=== PATIENT | female | born 1965 | race Caucasian/White ===

== ENCOUNTER → 2016-09-24 | Outpatient (CLI) | payer MEDICAID ==
[~2016-09-24] MED LIST: Albuterol 0.083% 2.5 MG/3 ML Neb Soln NEB ONE
--- NOTE | 2016-09-24 14:33 | CR ---
EXAMINATION: PA chest radiograph. HISTORY: Dyspnea. FINDINGS: The trachea is midline. The cardiomediastinal silhouette is within normal limits. No pulmonary infil trates, effusions or pneumothorax. Osseous structures appear unremarkable. IMPRESSION: No acute cardiopulmonary process.
== END ==
LOC: MW.RT 12:49
PROVIDERS: ATTEND Internal Medicine Gastroenterology
DX: R06.00 Dyspnea, unspecified (principal)
CPT/HCPCS: 71020; 71020-26; 94060; 94727; 94729

== ENCOUNTER 2017-03-22 06:24 | Observation (INO) | payer MEDICAID ==
[2017-03-21 11:51] LABS: CHLORIDE,CL 106 mmol/L (98-110); SODIUM,NA 140 mmol/L (136-146)
[~2017-03-22 06:24] MED LIST changes: -Albuterol 0.083% 2.5 MG/3 ML Neb Soln NEB ONE; +Clindamycin Phosphate in D5W 900 MG in Premix Bag 1 BAG IV ONE; +Gentamicin 400 MG in Sodium Chloride 0.9% 50 ML IV ONE
[2017-03-22] MEDS: Lactated Ringers 1,000 ML IV SCH ×3 (07:07→23:45)
[2017-03-22] MEDS ORDERED: Propofol 200 MG/20 ML SDV ONE (07:09)
[2017-03-22] MEDS ORDERED: Rocuronium 10 MG/ML 10 ML Syringe ONE (07:09)
[2017-03-22] MEDS ORDERED: Lidocaine 2% 5 ML SDV ONE (07:09)
[2017-03-22] MEDS ORDERED: fentaNYL 100 MCG/2 ML SDV ONE ×2 (07:09→08:14)
[2017-03-22] MEDS ORDERED: Ondansetron 4 MG/2 ML SDV ONE (07:09)
[2017-03-22] MEDS ORDERED: Succinylcholine/Normal Saline 200 MG/10 ML Syringe ONE (07:09)
[2017-03-22] MEDS ORDERED: Midazolam 1 MG/ML 2 ML SDV ONE (07:10)
[2017-03-22] MEDS ORDERED: Gentamicin 400 MG in Sodium Chloride 0.9% 100 ML IV ONE (07:30)
--- NOTE | 2017-03-22 07:31 | PCM.PREANE ---
Preanesthetic Assessment - Anesthesia/Transfusion/Family Hx Anesthesia History: Prior Anesthesia Without Reaction Family History of Anesthesia Reaction: No Transfusion History: No Prior Transfusion(s) Intubation History: Unknown - Review of Systems General: No Symptoms Pulmonary: No Symptoms Cardiovascular: No Symptoms Gastrointestinal: No Symptoms Neurological: No Symptoms Other: Reports: None - Physical Assessment NPO Status Date: 03/21/17 NPO Status Time: 20:00 O2 Sat by Pulse Oximetry: 96 Respiratory Rate: 16 Vital Signs: Last Vital Signs Temp 37.0 C 03/22/17 06:30 Pulse 79 03/22/17 06:30 Resp 16 03/22/17 06:30 BP 139/74 03/22/17 06:30 Pulse Ox 96 03/22/17 06:30 Height: 1.61 m Weight: 114.759 kg ASA Class: 2 Mental Status: Alert & Oriented x3 Airway Class: Mallampati = 2 Dentition: Reports: Normal Dentition Thyro-Mental Finger Breadths: 2 Mouth Opening Finger Breadths: 3 ROM/Head Extension: Full Lungs: Clear to Auscultation, Normal Respiratory Effort Cardiovascular: Regular Rate, Regular Rhythm - Lab Values: Laboratory Last Values WBC 7.12 K/uL (4.0-11.0) 03/21/17 11:11 RBC 4.43 M/uL (4.30-5.90) 03/21/17 11:11 Hgb 14.0 g/dL (12.0-16.0) 03/21/17 11:11 Hct 42.6 % (36.0-46.0) 03/21/17 11:11 MCV 96.2 fL (80.0-98.0) 03/21/17 11:11 MCH 31.6 pg (27.0-32.0) 03/21/17 11:11 MCHC 32.9 g/dL (31.0-37.0) 03/21/17 11:11 RDW Std Deviation 46.1 fl (28.0-62.0) 03/21/17 11:11 RDW Coeff of Gwyn 13 % (11.0-15.0) 03/21/17 11:11 Plt Count 255 K/uL (150-400) 03/21/17 11:11 MPV 10.80 fL (7.40-12.00) 03/21/17 11:11 Nucleated RBC % 0.0 /100WBC 03/21/17 11:11 Nucleated RBCs # 0 K/uL 03/21/17 11:11 Sodium 140 mmol/L (136-146) 03/21/17 11:11 Potassium 4.1 mmol/L (3.5-5.1) 03/21/17 11:11 Chloride 106 mmol/L (98-110) 03/21/17 11:11 Carbon Dioxide 24 mmol/L (21-31) 03/21/17 11:11 BUN 10 mg/dL (6.0-23.0) 03/21/17 11:11 Creatinine 0.7 mg/dL (0.6-1.5) 03/21/17 11:11 Est Cr Clr Drug Dosing 79.48 mL/min 03/21/17 11:11 Estimated GFR (MDRD) > 60.0 ml/min 03/21/17 11:11 Glucose 140 mg/dL (60-110) H 03/21/17 11:11 Calcium 9.2 mg/dL (8.8-10.8) 03/21/17 11:11 HCG, Qual NEGATIVE (NEG) 03/21/17 11:11 Blood Type A POSITIVE 03/21/17 11:11 Antibody Screen NEGATIVE 03/21/17 11:11 - Allergies Allergies/Adverse Reactions: Allergies Allergy/AdvReac Type Severity Reaction Status Date / Time codeine Allergy Vomiting Verified 06/27/16 14:05 - Blood Blood Available: No - Anesthesia Plan Pre-Op Medication Ordered: None - Acknowledgements Anesthesia Type Planned: General Anesthesia Pt an Appropriate Candidate for the Planned Anesthesia: Yes Alternatives and Risks of Anesthesia Discussed w Pt/Guardian: Yes Pt/Guardian Understands and Agrees with Anesthesia Plan: Yes PreAnesthesia Questionnaire HEENT History: Reports: Allergic Rhinitis, Impaired Vision, Other (See Below) Other HEENT History: wears glasses Cardiovascular History: Reports: Hypertension, Other (See Below) Other Cardiovascular History: "high BP if I take to much sudafed" Respiratory History: Reports: Asthma, Sleep Apnea Other Respiratory History: uses CPAP Gastrointestinal History: Reports: GERD Genitourinary History: Reports: None CARBIDE TOOL [employer]KER History: Reports: , Spontaneous Other OB/BYN History: ETOP x3, spontaneous AB x3, 1 vaginal delivery Musculoskeletal History: Reports: None Neurological History: Reports: Vertigo Psychiatric History: Reports: Anxiety Endocrine/Metabolic History: Reports: Obesity/BMI 30+ (BMI 44.1) Hematologic History: Reports: None Immunologic History: Reports: None Oncologic (Cancer) History: Reports: None Dermatologic History: Reports: None - Infectious Disease History Infectious Disease History: Reports: Chicken Pox - Past Surgical History Head Surgeries/Procedures: Reports: None HEENT Surgical History: Reports: Naso-Sinus Surgery, Polypectomy, Tonsillectomy , Other (See Below) Other HEENT Surgeries/Procedures: Septal surgery Respiratory Surgical History: Reports: None Female Surgical History: Reports: D&C, Other (See Below) Other Female Surgeries/Procedures: laparotomy with right ovarian cystectomy in early s, ETOP x3 Neurological Surgical History: Reports: None - SUBSTANCE USE Smoking Status *Q: Never Smoker Second Hand Smoke Exposure: No Days Per Week of Alcohol Use: 0 Recreational Drug Use History: No - HOME MEDS Home Medications: Home Meds Albuterol [Proair HFA] 2 puff INH Q4HR PRN 03/01/14 [History] Pseudoephedrine [Sudafed 12 Hour] 120 mg PO ASDIRECTED PRN 03/01/14 [History] Fluticasone/Salmeterol [Advair Diskus 100-50] 2 puff INH BID 06/24/16 [History] Ibuprofen [Advil] 1 tab PO ASDIRECTED PRN 03/17/17 [History] Loratadine/Pseudoephedrine [Claritin-D 24 Hour Tablet] 1 tab PO ASDIRECTED PRN 03/17/17 [History] Multivitamin [Multivitamins] 1 tab PO DAILY 03/17/17 [History] Omeprazole 20 mg PO ASDIRECTED PRN 03/17/17 [History] Thiamine [Vitamin B-1] 1 tab PO DAILY 03/17/17 [History] Vitamin B Complex 1 tab PO DAILY 03/17/17 [History] - CURRENT (IN HOUSE) MEDS Current Meds: Current Medications Lactated Ringer's (Ringers, Lactated) 1,000 mls @ 125 mls/hr IV ASDIRECTED APPLE Last Admin: 03/22/17 07:07 Dose: 125 mls/hr Gentamicin Sulfate 400 mg/ (Sodium Chloride) 110 mls @ 220 mls/hr IV ONETIME ONE Stop: 10/17/17 07:59 Discontinued Medications Fentanyl (Sublimaze) Confirm Administered Dose 200 mcg .ROUTE .STK-MED ONE Stop: 03/22/17 07:10 Clindamycin Phosphate 900 mg/ (Premix) 50 mls @ 100 mls/hr IV ONETIME ONE Stop: 03/22/17 06:50 Gentamicin Sulfate 400 mg/ (Sodium Chloride) 60 mls @ 100 mls/hr IV ONETIME ONE Stop: 03/22/17 06:52 Lidocaine (Xylocaine-Mpf 2%) Confirm Administered Dose 5 ml .ROUTE .STK-MED ONE Stop: 03/22/17 07:10 Midazolam HCl (Versed 1 Mg/Ml) Confirm Administered Dose 2 mg .ROUTE .STK-MED ONE Stop: 03/22/17 07:11 Ondansetron HCl (Zofran) Confirm Administered Dose 4 mg .ROUTE .STK-MED ONE Stop: 03/22/17 07:10 Propofol (Diprivan 20 Ml) Confirm Administered Dose 200 mg .ROUTE .STK-MED ONE Stop: 03/22/17 07:10 Rocuronium [place] (Zemuron) Confirm Administered Dose 100 mg .ROUTE .STK-MED ONE Stop: 03/22/17 07:10 Succinylcholine Chloride (Succinylcholine In Ns Pf) Confirm Administered Dose 200 mg .ROUTE .STK-MED ONE Stop: 03/22/17 07:10
[2017-03-22] MEDS ORDERED: Fluorescein 5 ML Vial ONE (07:34)
[2017-03-22] MEDS ORDERED: Furosemide 40 MG/4 ML VIAL ONE (08:24)
[2017-03-22] MEDS ORDERED: Neostigmine Methylsulfate 1 MG/ML 5 ML Syringe ONE (08:33)
[2017-03-22] MEDS ORDERED: fentaNYL 100 MCG/2 ML SDV IVPUSH PRN (08:45)
[2017-03-22] MEDS ORDERED: HYDROmorphone 2 MG/ML Syringe ONE (09:31)
[2017-03-22] MEDS ORDERED: Dexamethasone 4 MG/ML 5 ML MDV ONE (09:32)
[2017-03-22] MEDS ORDERED: ePHEDrine 50 MG/ML SDV ONE (09:34)
[2017-03-22] MEDS ORDERED: Phenylephrine/Normal Saline 100 MCG/ML 10 ML Syringe ONE (09:37)
[2017-03-22] MEDS ORDERED: Albuterol 6.7 GM Inhaler INH ONE (09:40)
[2017-03-22] MEDS ORDERED: Albuterol/Ipratropium 3.0-0.5 MG/3 ML Neb Soln ONE (10:38)
[2017-03-22] MEDS ORDERED: Albuterol/Ipratropium 3.0-0.5 MG/3 ML Neb Soln NEB ONE (10:44)
[2017-03-22] MEDS ORDERED: Acetaminophen 1,000 MG in Premix Bag 1 BAG IV ONE (11:24)
[2017-03-22] MEDS ORDERED: Belladonna Alkaloids/Opium 16.2-30 MG Supp RECTAL ONE (11:30)
[2017-03-22] MEDS ORDERED: Belladonna Alkaloids/Opium 16.2-30 MG Supp ONE (11:34)
[2017-03-22] MEDS ORDERED: Promethazine 25 MG/ML SDV IM PRN (12:33)
[2017-03-22] MEDS ORDERED: Ondansetron 4 MG/2 ML SDV IVPUSH PRN (12:33)
[2017-03-22] MEDS ORDERED: PSEUDOEPHEDRINE 120 MG PO PRN (12:37)
[2017-03-22] MEDS ORDERED: Loratadine/Pseudoephedrine 5-120 MG Tab.ER PO PRN (12:37)
[2017-03-22] MEDS ORDERED: Non-Formulary Medication 1 Each (Omeprazole [Omeprazole] 20 MG) PO PRN (12:37)
[2017-03-22] MEDS ORDERED: Omeprazole 20 MG Cap.CR PO PRN (12:49)
[2017-03-22] MEDS: Albuterol/Ipratropium 3.0-0.5 MG/3 ML Neb Soln NEB SCH ×4 (13:20→22:09)
--- NOTE | 2017-03-22 13:59 | PCM.OPNOTE ---
<David Sal - Last Filed: 03/22/17 14:26> - General Post-Op/Procedure Note Date of Surgery/Procedure: 03/22/17 Operative Procedure(s): Total vaginal hysterectomy. Anterior and posterior colporrhaphy Findings: Cystocele and prominent rectocele/enterocele Well vascularized vaginal tissue Pre Op Diagnosis: Postmenopausal bleeding and pelvic flood prolapse Post-Op Diagnosis: Postmenopausal bleeding and pelvic flood prolapse Anesthesia Technique: General LMA Primary Surgeon: Brittni Villasenor Dairy Processing Supervisor: Davdi Sal Pathology: Uterus and cervix Fluid Replacement, Intraop: 2,400 EBL in mLs: 300 Complications: None known Condition: Good Free Text/Narrative:: Intake & Output 03/21/17 03/22/17 03/22/17 22:59 06:59 14:59 Intake Total 3000 Output Total 1202 Balance 1798 <Brittni Villasenor - Last Filed: 03/22/17 14:49> - General Post-Op/Procedure Note Findings: normal appearing tubes and ovaries. Cystoscopy shows bladder mucosa without evidence of trauma, and good flow from bilateral ureteral orifices. Secondary Surgeon: Boris Harding Free Text/Narrative:: Intake & Output 03/21/17 03/22/17 03/22/17 22:59 06:59 14:59 Intake Total 5400 Output Total 1352 Balance 4048
[2017-03-22] MEDS: Acetaminophen 1,000 MG in Premix Bag 1 BAG IV SCH ×2 (15:33→20:56)
[2017-03-22] MEDS ORDERED: Simethicone 80 MG Tab.Chew PO PRN (16:55)
--- NOTE | 2017-03-22 16:58 | PCM.SN ---
- Free Text/Narrative Note: patient states pain well controlled. Vital stable in ICU. Reviewed operative findings, drop in O2 saturation in recovery, related to apnea, therefore will use CPAP tonight, but also monitor in ICU for vitals. Encouraged ambulation, may have regular diet as she desires.
[2017-03-22] MEDS: Ibuprofen 600 MG Tab PO PRN (19:48)
--- NOTE | 2017-03-22 21:44 | OR ---
SURGEON: Brittni Villasenor M.D. DATE OF PROCEDURE: 03/22/2017 PREOPERATIVE DIAGNOSIS: Incomplete uterovaginal prolapse. POSTOPERATIVE DIAGNOSIS: Incomplete uterovaginal prolapse. PROCEDURE: Total vaginal hysterectomy with anterior and posterior colporrhaphy. ANESTHESIA: General endotracheal. FLUIDS: 2400 mL of crystalloid. ESTIMATED BLOOD LOSS: 300 mL. FINDINGS: Second to third-degree uterine prolapse, third to fourth degree rectocele with enterocele, third-degree cystocele, normal-appearing tubes and ovaries. Upon cystoscopy, there was normal flow from bilateral ureteral orifices, also no evidence of any trauma to the bladder mucosa. COMPLICATIONS: None known. DISPOSITION: Stable to recovery. BRIEF HISTORY: This is a 51-year-old female, she has had an incomplete uterovaginal prolapse. She has pressure and discomfort and additionally had a lot of difficulty initiating bowel movements which causes abdominal pain. I did begin the process of evaluation in August. At that time, she had difficulty initiating bowel movements. She had streaking following bowel movements. She feels there is still bunches up in her vagina and she has a digitally assist type of bowel movement. She did have some urinary urgency, incomplete emptying, including some stress and urge incontinence. She underwent an endometrial biopsy for postmenopausal bleeding. In September, she underwent cystometry. She was actually found to have significant urinary retention, therefore, I did not recommend any transvaginal taping. I did try bethanechol to help with her urinary retention and this did help. I had recommended seeing a puddler helper prior to proceeding with the surgery, he states that she has serious sleep apnea. She had to have a CPAP evaluation prior to proceeding with the surgery. This took some time to get her CPAP completed and then she had a followup appointment with a puddler helper who did clear her for surgery. She is therefore consented for a total vaginal hysterectomy with anterior and posterior colporrhaphy and cystoscopy. Surgical risks were reviewed including risk of bleeding, infection, injury to bowel, bladder, blood vessels, or other organs, risk of thromboembolic event, risk of anesthesia, risk of change in sexual function, additional risk of posterior colporrhaphy including injury to bowel or sphincter, risk of dyspareunia and risk of recurrence were discussed, understanding all these risks, she does desire to proceed. DESCRIPTION OF PROCEDURE: With the patient in dorsal lithotomy position, under adequate general endotracheal anesthesia, the perineum and vagina were prepped with Betadine and draped in usual fashion for vaginal surgery. SCDs were in place. Urbano catheter had been placed. An appropriate time-out was held. She had received gentamicin and clindamycin preoperatively for prophylaxis due to allergy to cephalexin and she is also allergic to codeine. Evaluation included a fourth- degree rectocele, third-degree uterine prolapse, second-degree cystocele. The weighted speculum was placed posteriorly and right angle retractor was placed anteriorly. The cervix grasped with a Crystal tenaculum and circumscribed using electrocautery. The posterior cul-de-sac was entered sharply. A Jon weighted speculum was placed posteriorly, anterior cul-de-sac was entered sharply, and the right angle retractor was placed anteriorly. The uterosacral ligaments were doubly clamped and ligated with a simple suture of 2-0 Polysorb followed by a Yelena suture of 2-0 Polysorb, the second suture was retain. Three additional pedicles were taken on the right and the left, each was doubly clamped, cut, and ligated with a simple suture followed by a Yelena ligature of 2-0 Polysorb. The utero-ovarian ligaments were retained. The uterus was delivered vaginally. Bilateral tubes and ovaries appeared normal. The utero- ovarian ligaments were then released as they were both hemostatic, the remainder pedicles were all hemostatic. Therefore, attention was turned to the anterior vaginal cuff which was grasped with Allis clamps. Hydrodissection was performed beneath the anterior vaginal mucosa which was incised and undermined using Metzenbaum scissors. The muscularis layer was from the overlying vaginal mucosa and reapproximated using multiple interrupted mattress sutures of 2-0 Polysorb. This being completed, the posterior defect was evaluated. She had a low rectocele with a higher enterocele, therefore, a triangular incision was made into the perineum with a scalpel and the midline incision was made with Metzenbaum scissors undermined after hydrodissection with Metzenbaum scissors and incised in the midline. The muscularis layer was from the overlying vaginal mucosa to approximately two-thirds the way up at which time, the enterocele was identified. The vaginal mucosa was further opened in the midline to approximately 1 cm from the vaginal apex. The posterior aspect of the vaginal apex was incorporated into a pursestring suture, incorporating the upper end of the muscularis layer and the enterocele was reduced and tied with a pursestring suture. A second pursestring was placed over the first with a defect repaired. The small remaining rectocele was reapproximated using multiple interrupted mattress sutures of 2-0 Polysorb. The vaginal mucosa was then trimmed and reapproximated in midline using a running mattress suture of 0 Polysorb to the perineum, where deep perineal sutures of the same were utilized followed by subcuticular suture of the same to reapproximate the skin and the suture was tied at the lower vaginal incision. This being completed, the retained uterosacral ligament sutures which had excellent support from the uterus were ligated to the vaginal apices bilaterally incorporating the posterior vaginal cuff on the right and the left this being completed, the remaining cuff was closed with a running lock suture of 0 Polysorb. IV fluorescein was then given along with Lasix, there was copious flow of bright green urine from bilateral ureteral orifices as well as no evidence of any trauma to the bladder mucosa. The cystoscopy being completed, the Urbano catheter was replaced. The vagina was inspected, it was hemostatic and was packed with vaginal packing. Final sponge, needle, and instrument counts were reported as correct. There were no known complications. The patient was transferred to recovery, where she did suffer from apneic episodes requiring CPAP and BiPAP, however, as she was more alert, her oxygen saturations returned to normal, due to the desaturation with any narcotics that she received in the recovery room. She was sent to the ICU for monitoring of vitals overnight. MYRTLE DAVILA /[id number]
[2017-03-22] MEDS ORDERED: Lactated Ringers 200 ML IV ONE ×2 (23:00)
[2017-03-22] MEDS ORDERED: Meclizine 25 MG Tab PO ONE (23:22)
[2017-03-22] MEDS ORDERED: Lactated Ringers 1,000 ML IV SCH ×2 (23:30→23:55)
[2017-03-23] MEDS: Fluticasone/Salmeterol 100-50 MCG Inhalation Powder 14/Diskus INH SCH ×2 (00:07→10:21)
[2017-03-23] MEDS: Albuterol/Ipratropium 3.0-0.5 MG/3 ML Neb Soln NEB SCH ×3 (01:18→10:34)
[2017-03-23] MEDS: Acetaminophen 1,000 MG in Premix Bag 1 BAG IV SCH ×2 (03:57→08:46)
[2017-03-23] MEDS ORDERED: Lactated Ringers 1,000 ML IV SCH (04:15)
[2017-03-23] MEDS: Ibuprofen 600 MG Tab PO PRN (04:28)
[2017-03-23] MEDS: Lactated Ringers 1,000 ML IV SCH (05:20)
[2017-03-23 05:45] LABS: CHLORIDE,CL 100 mmol/L (98-110); SODIUM,NA 135 mmol/L (136-146)
--- NOTE | 2017-03-23 07:59 | PCM.SURGPN ---
<David Sal - Last Filed: 03/23/17 07:54> - General Info Date of Service: 03/23/17 Date of Surgery/Procedure: 03/22/17 POD#: 1 Admission Diagnosis/Problem: Postmenopausal bleeding Functional Status: Reports: Pain Controlled, Tolerating Diet, Ambulating (but limited) Pain Score: 6 - Review of Systems General: Reports: Weakness. Denies: Fever, Chills HEENT: Reports: Glasses. Denies: Dysphasia, Headaches, Visual Changes Pulmonary: Reports: Shortness of Breath (Due to abdominal/chest pain), Pleuritic Chest Pain (Due to abdominal/chest pain), Cough Cardiovascular: Reports: Edema (trace). Denies: Palpitations, Dyspnea on Exertion Gastrointestinal: Reports: Abdominal Pain. Denies: Flatus, Nausea, Vomiting Genitourinary: Reports: Other (Had catheter in place) Musculoskeletal: Denies: Neck Pain Neurological: Denies: Confusion, Dizziness, Headache, Numbness, Trouble Speaking , Change in Speech Psychiatric: Denies: Confusion, Depression - Patient Data Vitals - Most Recent: Last Vital Signs Temp 97.2 F 03/23/17 04:00 Pulse 89 03/22/17 18:00 Resp 22 H 03/23/17 07:00 BP 107/56 L 03/23/17 07:00 Pulse Ox 90 L 03/23/17 07:00 Weight - Most Recent: 114.759 kg I&O - Last 24 Hours: Intake & Output 03/22/17 03/23/17 03/23/17 22:59 06:59 14:59 Intake Total 415 2064 Output Total 475 345 Balance -60 1719 Lab Results Last 24 Hrs: Laboratory Results - last 24 hr 03/23/17 03/23/17 Range/Units 04:35 04:35 WBC 14.72 H (4.0-11.0) K/uL RBC 3.53 L (4.30-5.90) M/uL Hgb 11.1 L (12.0-16.0) g/dL Hct 33.9 L (36.0-46.0) % MCV 96.0 (80.0-98.0) fL MCH 31.4 (27.0-32.0) pg MCHC 32.7 (31.0-37.0) g/dL RDW Std Deviation 46.3 (28.0-62.0) fl RDW Coeff of Gwyn 13 (11.0-15.0) % Plt Count 288 (150-400) K/uL MPV 11.20 (7.40-12.00) fL Neut % (Auto) 80.3 H (48.0-80.0) % Lymph % (Auto) 13.5 L (16.0-40.0) % [place] % (Auto) 6.0 (0.0-15.0) % Eos % (Auto) 0.1 (0.0-7.0) % Baso % (Auto) 0.1 (0.0-1.5) % Neut # (Auto) 11.8 H (1.4-5.7) K/uL Lymph # (Auto) 2.0 (0.6-2.4) K/uL [place] # (Auto) 0.9 H (0.0-0.8) K/uL Eos # (Auto) 0.0 (0.0-0.7) K/uL Baso # (Auto) 0.0 (0.0-0.1) K/uL Nucleated RBC % 0.0 /100WBC Nucleated RBCs # 0 K/uL Sodium 135 L (136-146) mmol/L Potassium 4.6 (3.5-5.1) mmol/L Chloride 100 (98-110) mmol/L Carbon Dioxide 25 (21-31) mmol/L BUN 18 (6.0-23.0) mg/dL Creatinine 0.8 (0.6-1.5) mg/dL Est Cr Clr Drug Dosing 69.54 mL/min Estimated GFR (MDRD) > 60.0 ml/min Glucose 154 H (60-110) mg/dL Calcium 8.4 L (8.8-10.8) mg/dL Med Orders - Current: Current Medications Albuterol/Ipratropium (Duoneb 3.0-0.5 Mg/3 Ml) 3 ml NEB Q4HRRT [facility] Last Admin: 03/23/17 06:14 Dose: 3 ml Fentanyl (Sublimaze) 50 mcg IVPUSH Q5M PRN PRN Reason: Pain (severe 7-10) Stop: 03/23/17 08:45 Last Admin: 03/22/17 11:00 Dose: 50 mcg Acetaminophen 1,000 mg/ Premix 100 mls @ 400 mls/hr IV Q6H [facility] Last Admin: 03/23/17 03:57 Dose: 400 mls/hr Lactated Ringer's (Ringers, Lactated) 1,000 mls @ 150 mls/hr IV ASDIRECTED [facility] Last Admin: 03/23/17 05:20 Dose: 150 mls/hr Lactated Ringer's (Ringers, Lactated) 1,000 mls @ 999 mls/hr IV ASDIRECTED [facility] Last Admin: 03/23/17 04:21 Dose: 999 mls/hr Ibuprofen (Motrin) 600 mg PO Q6H PRN PRN Reason: Pain Last Admin: 03/23/17 04:28 Dose: 600 mg Multivitamins/Minerals (Thera M Plus) 1 tab PO DAILY [facility] Omeprazole (Omeprazole) 20 mg PO ACBREAKFAST PRN PRN Reason: Heartburn Ondansetron HCl (Zofran) 4 mg IVPUSH Q6H PRN PRN Reason: Nausea/Vomiting Last Admin: 03/22/17 15:44 Dose: 4 mg Vitamin B Complex 1 each PO DAILY [facility] Promethazine HCl (Phenergan) 25 mg IM Q6H PRN PRN Reason: Nausea/Vomiting Last Admin: 03/22/17 17:18 Dose: 25 mg Fluticasone/Salmeterol (Advair Diskus 100-50) 2 puff INH BID [facility] Last Admin: 03/23/17 00:07 Dose: 1 puff Simethicone (Simethicone) 80 mg PO Q6H PRN PRN Reason: Gas Thiamine HCl (Vitamin B-1) 100 mg PO DAILY [facility] Discontinued Medications Albuterol (Proventil Hfa) Confirm Administered Dose 6.7 gm INH .STK-MED ONE Stop: 03/22/17 09:41 Albuterol/Ipratropium (Duoneb 3.0-0.5 Mg/3 Ml) Confirm Administered Dose 3 ml .ROUTE .STK-MED ONE Stop: 03/22/17 10:39 Last Admin: 03/22/17 10:41 Dose: 3 ml Albuterol/Ipratropium (Duoneb 3.0-0.5 Mg/3 Ml) 3 ml NEB ONETIME ONE Stop: 03/22/17 10:45 Last Admin: 03/22/17 13:17 Dose: Not Given Belladonna Alkaloids/Opium (B & O Supprettes No. 15a) 1 supp RECTAL ONETIME ONE Stop: 03/22/17 11:31 Last Admin: 03/22/17 13:19 Dose: Not Given Belladonna Alkaloids/Opium (B & O Supprettes No. 15a) Confirm Administered Dose 1 supp .ROUTE .STK-MED ONE Stop: 03/22/17 11:35 Last Admin: 03/22/17 13:19 Dose: Not Given Dexamethasone (Dexamethasone) Confirm Administered Dose 20 mg .ROUTE .STK-MED ONE Stop: 03/22/17 09:33 Ephedrine Sulfate (Ephedrine Sulfate) Confirm Administered Dose 50 mg .ROUTE .STK-MED ONE Stop: 03/22/17 09:35 Fentanyl (Sublimaze) Confirm Administered Dose 200 mcg .ROUTE .STK-MED ONE Stop: 03/22/17 07:10 Fentanyl (Sublimaze) Confirm Administered Dose 100 mcg .ROUTE .STK-MED ONE Stop: 03/22/17 08:15 Fluorescein Sodium (Ak-Fluor) Confirm Administered Dose 5 ml .ROUTE .STK-MED ONE Stop: 03/22/17 07:35 Furosemide (Lasix) Confirm Administered Dose 40 mg .ROUTE .STK-MED ONE Stop: 03/22/17 08:25 Glycopyrrolate () Confirm Administered Dose 1 mg .ROUTE .STK-MED ONE Stop: 03/22/17 08:34 Hydromorphone HCl (Dilaudid) Confirm Administered Dose 2 mg .ROUTE .STK-MED ONE Stop: 03/22/17 09:32 Lactated Ringer's (Ringers, Lactated) 1,000 mls @ 125 mls/hr IV ASDIRECTED [facility] Last Admin: 03/22/17 23:05 Dose: 125 mls/hr Clindamycin Phosphate 900 mg/ (Premix) 50 mls @ 100 mls/hr IV ONETIME ONE Stop: 03/22/17 06:50 Last Admin: 03/22/17 13:17 Dose: Not Given Gentamicin Sulfate 400 mg/ (Sodium Chloride) 60 mls @ 100 mls/hr IV ONETIME ONE Stop: 03/22/17 06:52 Last Admin: 03/22/17 13:17 Dose: Not Given Gentamicin Sulfate 400 mg/ (Sodium Chloride) 110 mls @ 220 mls/hr IV ONETIME ONE Stop: 03/22/17 07:59 Last Admin: 03/22/17 07:32 Dose: 220 mls/hr Acetaminophen (Ofirmev) Confirm Administered Dose 100 mls @ as directed IV .STK- MED ONE Stop: 03/22/17 11:17 Last Admin: 03/22/17 13:18 Dose: Not Given Acetaminophen 1,000 mg/ Premix 100 mls @ 400 mls/hr IV NOW ONE Stop: 03/22/17 11:38 Last Admin: 03/22/17 11:20 Dose: 400 mls/hr Lactated Ringer's (Ringers, Lactated) 200 mls @ 999 mls/hr IV ONETIME ONE Stop: 03/22/17 23:12 Last Admin: 03/23/17 00:05 Dose: Not Given Lactated Ringer's (Ringers, Lactated) 200 mls @ 0 mls/hr IV .BOLUS ONE PRN Reason: Wide Open Stop: 03/22/17 23:01 Last Admin: 03/22/17 23:30 Dose: 999 mls/hr Lidocaine (Xylocaine-Mpf 2%) Confirm Administered Dose 5 ml .ROUTE .STK-MED ONE Stop: 03/22/17 07:10 Loratadine/Pseudoephedrine Sulfate (Claritin-D 12 Hour) 1 tab PO DAILY PRN PRN Reason: Allergies Meclizine HCl (Antivert) 25 mg PO ONETIME ONE Stop: 03/22/17 23:23 Last Admin: 03/23/17 00:06 Dose: 25 mg Midazolam HCl (Versed 1 Mg/Ml) Confirm Administered Dose 2 mg .ROUTE .STK-MED ONE Stop: 03/22/17 07:11 Neostigmine Methylsulfate (Neostigmine) Confirm Administered Dose 5 mg .ROUTE .STK-MED ONE Stop: 03/22/17 08:34 Non-Formulary Medication (Omeprazole [Omeprazole]) 20 mg PO ACBREAKFAST PRN PRN Reason: Heartburn Non-Formulary Medication (Pseudoephedrine [Sudafed 12 Hour]) 120 mg PO ASDIRECTED PRN PRN Reason: Cough Ondansetron HCl (Zofran) Confirm Administered Dose 4 mg .ROUTE .STK-MED ONE Stop: 03/22/17 07:10 Phenylephrine HCl (Phenylephrine In Ns 100 Mcg/Ml) Confirm Administered Dose 1 mg .ROUTE .STK-MED ONE Stop: 03/22/17 09:38 Propofol (Diprivan 20 Ml) Confirm Administered Dose 200 mg .ROUTE .STK-MED ONE Stop: 03/22/17 07:10 Rocuronium [place] (Zemuron) Confirm Administered Dose 100 mg .ROUTE .STK-MED ONE Stop: 03/22/17 07:10 Succinylcholine Chloride (Succinylcholine In Ns Pf) Confirm Administered Dose 200 mg .ROUTE .STK-MED ONE Stop: 03/22/17 07:10 - Exam Wound/Incisions: Drainage (vaginal dressing had scant blood) General: Alert, Oriented HEENT: Pupils Equal, Mucous Membr. Moist/[place] Neck: Trachea Midline Lungs: Clear to Auscultation, Normal Respiratory Effort Cardiovascular: Regular Rate, Regular Rhythm GI/Abdominal Exam: Normal Bowel Sounds, Soft, Tender (Lower abdominal) Extremities: Normal Inspection, Normal Range of Motion, Pedal Edema (trace) Skin: Warm, Dry, Intact Neurological: No New Focal Deficit Psy/Mental Status: Alert, Normal Affect, Normal Mood - Problem List & Annotations (1) Postmenopausal bleeding SNOMED Code(s): 30150919 Code(s): N95.0 - POSTMENOPAUSAL BLEEDING Status: Acute Current Visit: Yes (2) Acute asthma SNOMED Code(s): 899873694 Code(s): J45.909 - UNSPECIFIED ASTHMA, UNCOMPLICATED Status: Acute Current Visit: No (3) Vertigo SNOMED Code(s): 345834985 Code(s): R42 - DIZZINESS AND GIDDINESS Status: Acute Current Visit: No - Problem List Review Problem List Initiated/Reviewed/Updated: Yes - My Orders Last 24 Hours: Active Orders 24 hr Category Date Time Status Patient Status [ADT] Routine ADT 03/22/17 12:33 Active Antiembolic Devices [RC] PER UNIT ROUTINE Care 03/22/17 12:33 Active Notify Provider Intake and Out [RC] ASDIRECTED Care 03/22/17 12:33 Active Notify Provider Vital Signs [RC] ASDIRECTED Care 03/22/17 12:33 Active Oxygen Therapy [RC] ASDIRECTED Care 03/22/17 12:33 Active RT Aerosol Therapy [RC] ASDIRECTED Care 03/22/17 10:44 Active RT BiPAP/CPAP [RC] ASDIRECTED Care 03/22/17 10:44 Active RT Incentive Spirometry [RC] .PRN Care 03/22/17 12:33 Active Up With Assistance [RC] PER UNIT ROUTINE Care 03/22/17 12:33 Active Up ad Alysha [RC] PER UNIT ROUTINE Care 03/22/17 12:33 Active Urinary Catheter Removal [RC] Per Unit Routine Care 03/22/17 12:33 Active Vital Signs [RC] Q1H Care 03/22/17 12:33 Active Advance Diet Instructions [DIET] Diet 03/22/17 Dinner Active Regular Diet [DIET] Diet 03/23/17 Breakfast Active Acetaminophen [Ofirmev] 1,000 mg Med 03/22/17 15:00 Active Premix Bag 1 bag IV Q6H Albuterol/Ipratropium [DuoNeb 3.0-0.5 MG/3 ML] Med 03/22/17 12:45 Active 3 ml NEB Q4HRRT Fluticasone/Salmeterol [Advair Diskus 100-50] Med 03/22/17 21:00 Active 2 puff INH BID Ibuprofen [Motrin] Med 03/22/17 14:50 Active 600 mg PO Q6H PRN Lactated Ringers [Ringers, Lactated] 1,000 ml Med 03/22/17 23:00 Active IV ASDIRECTED Lactated Ringers [Ringers, Lactated] 1,000 ml Med 03/23/17 04:15 Active IV ASDIRECTED Multivitamins w-Iron/Ca/FA/Min [Thera M Plus] Med 03/23/17 09:00 Active 1 tab PO DAILY Omeprazole Med 03/22/17 12:49 Active 20 mg PO ACBREAKFAST PRN Ondansetron [Zofran] Med 03/22/17 12:33 Active 4 mg IVPUSH Q6H PRN Patient's Own Medication [Ptom] Med 03/23/17 09:00 Active 1 each PO DAILY Promethazine [Phenergan] Med 03/22/17 12:33 Active 25 mg IM Q6H PRN Simethicone Med 03/22/17 16:55 Active 80 mg PO Q6H PRN Thiamine [Vitamin B-1] Med 03/23/17 09:00 Active 100 mg PO DAILY fentaNYL [Sublimaze] Med 03/22/17 08:45 Active 50 mcg IVPUSH Q5M PRN Peripheral IV Discontinue [OM.PC] Routine Oth 03/22/17 12:33 Ordered Sequential Compression Device [OM.PC] Per Unit Routine Oth 03/22/17 12:33 Ordered Resuscitation Status Routine Resus Stat 03/22/17 12:33 Ordered Medication Orders Albuterol/Ipratropium (Duoneb 3.0-0.5 Mg/3 Ml) 3 ml NEB Q4HRRT [facility] Last Admin: 03/23/17 06:14 Dose: 3 ml Admin: 03/23/17 01:18 Dose: 3 ml Admin: 03/22/17 22:09 Dose: 3 ml Admin: 03/22/17 18:00 Dose: 3 ml Admin: 03/22/17 14:21 Dose: 3 ml Admin: 03/22/17 13:20 Dose: Fentanyl (Sublimaze) 50 mcg IVPUSH Q5M PRN PRN Reason: Pain (severe 7-10) Stop: 03/23/17 08:45 Last Admin: 03/22/17 11:00 Dose: 50 mcg Acetaminophen 1,000 mg/ Premix 100 mls @ 400 mls/hr IV Q6H [facility] Last Admin: 03/23/17 03:57 Dose: 400 mls/hr Infusion: 03/22/17 21:11 Dose: 400 mls/hr Admin: 03/22/17 20:56 Dose: 400 mls/hr Infusion: 03/22/17 15:48 Dose: 400 mls/hr Admin: 03/22/17 15:33 Dose: 400 mls/hr Lactated Ringer's (Ringers, Lactated) 1,000 mls @ 150 mls/hr IV ASDIRECTED [facility] Last Admin: 03/23/17 05:20 Dose: 150 mls/hr Infusion: 03/23/17 05:20 Dose: 150 mls/hr Admin: 03/22/17 23:45 Dose: 150 mls/hr Lactated Ringer's (Ringers, Lactated) 1,000 mls @ 999 mls/hr IV ASDIRECTED [facility] Last Admin: 03/23/17 04:21 Dose: 999 mls/hr Ibuprofen (Motrin) 600 mg PO Q6H PRN PRN Reason: Pain Last Admin: 03/23/17 04:28 Dose: 600 mg Admin: 03/22/17 19:48 Dose: 600 mg Multivitamins/Minerals (Thera M Plus) 1 tab PO DAILY [facility] Omeprazole (Omeprazole) 20 mg PO ACBREAKFAST PRN PRN Reason: Heartburn Ondansetron HCl (Zofran) 4 mg IVPUSH Q6H PRN PRN Reason: Nausea/Vomiting Last Admin: 03/22/17 15:44 Dose: 4 mg Vitamin B Complex 1 each PO DAILY [facility] Promethazine HCl (Phenergan) 25 mg IM Q6H PRN PRN Reason: Nausea/Vomiting Last Admin: 03/22/17 17:18 Dose: 25 mg Fluticasone/Salmeterol (Advair Diskus 100-50) 2 puff INH BID [facility] Last Admin: 03/23/17 00:07 Dose: 1 puff Simethicone (Simethicone) 80 mg PO Q6H PRN PRN Reason: Gas Thiamine HCl (Vitamin B-1) 100 mg PO DAILY [facility] - Assessment Assessment (Free Text/Narrative):: Overnight the patient slept well. Her O2 dropped to a low of 89% but averaged in the mid 90s on CPAP. She also experienced a short episode of vertigo that was treated with meclizine. Her pain was well controlled with the IV Tylenol that required only one done of ibuprofen to help her sleep. This morning patient states that pain with well controlled at a 6/10 on the IV Tylenol. Patient is able to sit and walk unassisted but requires aid in standing due to abdominal pain. While transitioning to the chair her vitals were HR-120, O2-92%, and RR-17. The patient is tolerating a normal diet and is not feeling nauseated. She is not showing any signs of infection at this time. Vaginal dressing was removed and showed scan blood. The catheter was also removed at that time to the patients relief. Patient is concerned about pain and any problems she may cause if she has a bowel movement. - Plan Plan (Free Text/Narrative):: Transition patient to oral pain medication and assess pain management Discontinue IV fluids Monitor for vaginal bleeding Monitor for any signs of infection Continue incentive spirometry Increase patient ambulation in the gonzalez Start a stool softener <Brittni Villasenor - Last Filed: 03/23/17 08:43> - Patient Data Vitals - Most Recent: Last Vital Signs Temp 36.2 C 03/23/17 04:00 Pulse 89 03/22/17 18:00 Resp 22 H 03/23/17 07:00 BP 107/56 L 03/23/17 07:00 Pulse Ox 90 L 03/23/17 07:00 I&O - Last 24 Hours: Intake & Output 03/22/17 03/23/17 03/23/17 22:59 06:59 14:59 Intake Total 415 2064 Output Total 475 345 Balance -60 1719 Lab Results Last 24 Hrs: Laboratory Results - last 24 hr 03/23/17 03/23/17 Range/Units 04:35 04:35 WBC 14.72 H (4.0-11.0) K/uL RBC 3.53 L (4.30-5.90) M/uL Hgb 11.1 L (12.0-16.0) g/dL Hct 33.9 L (36.0-46.0) % MCV 96.0 (80.0-98.0) fL MCH 31.4 (27.0-32.0) pg MCHC 32.7 (31.0-37.0) g/dL RDW Std Deviation 46.3 (28.0-62.0) fl RDW Coeff of Gwyn 13 (11.0-15.0) % Plt Count 288 (150-400) K/uL MPV 11.20 (7.40-12.00) fL Neut % (Auto) 80.3 H (48.0-80.0) % Lymph % (Auto) 13.5 L (16.0-40.0) % [place] % (Auto) 6.0 (0.0-15.0) % Eos % (Auto) 0.1 (0.0-7.0) % Baso % (Auto) 0.1 (0.0-1.5) % Neut # (Auto) 11.8 H (1.4-5.7) K/uL Lymph # (Auto) 2.0 (0.6-2.4) K/uL [place] # (Auto) 0.9 H (0.0-0.8) K/uL Eos # (Auto) 0.0 (0.0-0.7) K/uL Baso # (Auto) 0.0 (0.0-0.1) K/uL Nucleated RBC % 0.0 /100WBC Nucleated RBCs # 0 K/uL Sodium 135 L (136-146) mmol/L Potassium 4.6 (3.5-5.1) mmol/L Chloride 100 (98-110) mmol/L Carbon Dioxide 25 (21-31) mmol/L BUN 18 (6.0-23.0) mg/dL Creatinine 0.8 (0.6-1.5) mg/dL Est Cr Clr Drug Dosing 69.54 mL/min Estimated GFR (MDRD) > 60.0 ml/min Glucose 154 H (60-110) mg/dL Calcium 8.4 L (8.8-10.8) mg/dL Med Orders - Current: Current Medications Albuterol/Ipratropium (Duoneb 3.0-0.5 Mg/3 Ml) 3 ml NEB Q4HRRT [facility] Last Admin: 03/23/17 06:14 Dose: 3 ml Fentanyl (Sublimaze) 50 mcg IVPUSH Q5M PRN PRN Reason: Pain (severe 7-10) Stop: 03/23/17 08:45 Last Admin: 03/22/17 11:00 Dose: 50 mcg Acetaminophen 1,000 mg/ Premix 100 mls @ 400 mls/hr IV Q6H [facility] Last Admin: 03/23/17 03:57 Dose: 400 mls/hr Lactated Ringer's (Ringers, Lactated) 1,000 mls @ 150 mls/hr IV ASDIRECTED [facility] Last Admin: 03/23/17 05:20 Dose: 150 mls/hr Lactated Ringer's (Ringers, Lactated) 1,000 mls @ 999 mls/hr IV ASDIRECTED [facility] Last Admin: 03/23/17 04:21 Dose: 999 mls/hr Ibuprofen (Motrin) 600 mg PO Q6H PRN PRN Reason: Pain Last Admin: 03/23/17 04:28 Dose: 600 mg Multivitamins/Minerals (Thera M Plus) 1 tab PO DAILY [facility] Last Admin: 03/23/17 08:39 Dose: 1 tab Omeprazole (Omeprazole) 20 mg PO ACBREAKFAST PRN PRN Reason: Heartburn Ondansetron HCl (Zofran) 4 mg IVPUSH Q6H PRN PRN Reason: Nausea/Vomiting Last Admin: 03/22/17 15:44 Dose: 4 mg Vitamin B Complex 1 each PO DAILY [facility] Promethazine HCl (Phenergan) 25 mg IM Q6H PRN PRN Reason: Nausea/Vomiting Last Admin: 03/22/17 17:18 Dose: 25 mg Fluticasone/Salmeterol (Advair Diskus 100-50) 2 puff INH BID [facility] Last Admin: 03/23/17 00:07 Dose: 1 puff Simethicone (Simethicone) 80 mg PO Q6H PRN PRN Reason: Gas Thiamine HCl (Vitamin B-1) 100 mg PO DAILY [facility] Last Admin: 03/23/17 08:39 Dose: 100 mg Discontinued Medications Albuterol (Proventil Hfa) Confirm Administered Dose 6.7 gm INH .STK-MED ONE Stop: 03/22/17 09:41 Albuterol/Ipratropium (Duoneb 3.0-0.5 Mg/3 Ml) Confirm Administered Dose 3 ml .ROUTE .STK-MED ONE Stop: 03/22/17 10:39 Last Admin: 03/22/17 10:41 Dose: 3 ml Albuterol/Ipratropium (Duoneb 3.0-0.5 Mg/3 Ml) 3 ml NEB ONETIME ONE Stop: 03/22/17 10:45 Last Admin: 03/22/17 13:17 Dose: Not Given Belladonna Alkaloids/Opium (B & O Supprettes No. 15a) 1 supp RECTAL ONETIME ONE Stop: 03/22/17 11:31 Last Admin: 03/22/17 13:19 Dose: Not Given Belladonna Alkaloids/Opium (B & O Supprettes No. 15a) Confirm Administered Dose 1 supp .ROUTE .STK-MED ONE Stop: 03/22/17 11:35 Last Admin: 03/22/17 13:19 Dose: Not Given Dexamethasone (Dexamethasone) Confirm Administered Dose 20 mg .ROUTE .STK-MED ONE Stop: 03/22/17 09:33 Ephedrine Sulfate (Ephedrine Sulfate) Confirm Administered Dose 50 mg .ROUTE .STK-MED ONE Stop: 03/22/17 09:35 Fentanyl (Sublimaze) Confirm Administered Dose 200 mcg .ROUTE .STK-MED ONE Stop: 03/22/17 07:10 Fentanyl (Sublimaze) Confirm Administered Dose 100 mcg .ROUTE .STK-MED ONE Stop: 03/22/17 08:15 Fluorescein Sodium (Ak-Fluor) Confirm Administered Dose 5 ml .ROUTE .STK-MED ONE Stop: 03/22/17 07:35 Furosemide (Lasix) Confirm Administered Dose 40 mg .ROUTE .STK-MED ONE Stop: 03/22/17 08:25 Glycopyrrolate () Confirm Administered Dose 1 mg .ROUTE .STK-MED ONE Stop: 03/22/17 08:34 Hydromorphone HCl (Dilaudid) Confirm Administered Dose 2 mg .ROUTE .STK-MED ONE Stop: 03/22/17 09:32 Lactated Ringer's (Ringers, Lactated) 1,000 mls @ 125 mls/hr IV ASDIRECTED [facility] Last Admin: 03/22/17 23:05 Dose: 125 mls/hr Clindamycin Phosphate 900 mg/ (Premix) 50 mls @ 100 mls/hr IV ONETIME ONE Stop: 03/22/17 06:50 Last Admin: 03/22/17 13:17 Dose: Not Given Gentamicin Sulfate 400 mg/ (Sodium Chloride) 60 mls @ 100 mls/hr IV ONETIME ONE Stop: 03/22/17 06:52 Last Admin: 03/22/17 13:17 Dose: Not Given Gentamicin Sulfate 400 mg/ (Sodium Chloride) 110 mls @ 220 mls/hr IV ONETIME ONE Stop: 03/22/17 07:59 Last Admin: 03/22/17 07:32 Dose: 220 mls/hr Acetaminophen (Ofirmev) Confirm Administered Dose 100 mls @ as directed IV .STK- MED ONE Stop: 03/22/17 11:17 Last Admin: 03/22/17 13:18 Dose: Not Given Acetaminophen 1,000 mg/ Premix 100 mls @ 400 mls/hr IV NOW ONE Stop: 03/22/17 11:38 Last Admin: 03/22/17 11:20 Dose: 400 mls/hr Lactated Ringer's (Ringers, Lactated) 200 mls @ 999 mls/hr IV ONETIME ONE Stop: 03/22/17 23:12 Last Admin: 03/23/17 00:05 Dose: Not Given Lactated Ringer's (Ringers, Lactated) 200 mls @ 0 mls/hr IV .BOLUS ONE PRN Reason: Wide Open Stop: 03/22/17 23:01 Last Admin: 03/22/17 23:30 Dose: 999 mls/hr Lidocaine (Xylocaine-Mpf 2%) Confirm Administered Dose 5 ml .ROUTE .STK-MED ONE Stop: 03/22/17 07:10 Loratadine/Pseudoephedrine Sulfate (Claritin-D 12 Hour) 1 tab PO DAILY PRN PRN Reason: Allergies Meclizine HCl (Antivert) 25 mg PO ONETIME ONE Stop: 03/22/17 23:23 Last Admin: 03/23/17 00:06 Dose: 25 mg Midazolam HCl (Versed 1 Mg/Ml) Confirm Administered Dose 2 mg .ROUTE .STK-MED ONE Stop: 03/22/17 07:11 Neostigmine Methylsulfate (Neostigmine) Confirm Administered Dose 5 mg .ROUTE .STK-MED ONE Stop: 03/22/17 08:34 Non-Formulary Medication (Omeprazole [Omeprazole]) 20 mg PO ACBREAKFAST PRN PRN Reason: Heartburn Non-Formulary Medication (Pseudoephedrine [Sudafed 12 Hour]) 120 mg PO ASDIRECTED PRN PRN Reason: Cough Ondansetron HCl (Zofran) Confirm Administered Dose 4 mg .ROUTE .STK-MED ONE Stop: 03/22/17 07:10 Phenylephrine HCl (Phenylephrine In Ns 100 Mcg/Ml) Confirm Administered Dose 1 mg .ROUTE .STK-MED ONE Stop: 03/22/17 09:38 Propofol (Diprivan 20 Ml) Confirm Administered Dose 200 mg .ROUTE .STK-MED ONE Stop: 03/22/17 07:10 Rocuronium [place] (Zemuron) Confirm Administered Dose 100 mg .ROUTE .STK-MED ONE Stop: 03/22/17 07:10 Succinylcholine Chloride (Succinylcholine In Ns Pf) Confirm Administered Dose 200 mg .ROUTE .STK-MED ONE Stop: 03/22/17 07:10 - Problem List Review Problem List Initiated/Reviewed/Updated: Yes - My Orders Last 24 Hours: Active Orders 24 hr Category Date Time Status Patient Status [ADT] Routine ADT 03/22/17 12:33 Active Antiembolic Devices [RC] PER UNIT ROUTINE Care 03/22/17 12:33 Active Notify Provider Intake and Out [RC] ASDIRECTED Care 03/22/17 12:33 Active Notify Provider Vital Signs [RC] ASDIRECTED Care 03/22/17 12:33 Active Oxygen Therapy [RC] ASDIRECTED Care 03/22/17 12:33 Active RT Aerosol Therapy [RC] ASDIRECTED Care 03/22/17 10:44 Active RT BiPAP/CPAP [RC] ASDIRECTED Care 03/22/17 10:44 Active RT Incentive Spirometry [RC] .PRN Care 03/22/17 12:33 Active Up With Assistance [RC] PER UNIT ROUTINE Care 03/22/17 12:33 Active Up ad Alysha [RC] PER UNIT ROUTINE Care 03/22/17 12:33 Active Vital Signs [RC] Q1H Care 03/22/17 12:33 Active Advance Diet Instructions [DIET] Diet 03/22/17 Dinner Active Regular Diet [DIET] Diet 03/23/17 Breakfast Active Acetaminophen [Ofirmev] 1,000 mg Med 03/22/17 15:00 Active Premix Bag 1 bag IV Q6H Albuterol/Ipratropium [DuoNeb 3.0-0.5 MG/3 ML] Med 03/22/17 12:45 Active 3 ml NEB Q4HRRT Fluticasone/Salmeterol [Advair Diskus 100-50] Med 03/22/17 21:00 Active 2 puff INH BID Ibuprofen [Motrin] Med 03/22/17 14:50 Active 600 mg PO Q6H PRN Lactated Ringers [Ringers, Lactated] 1,000 ml Med 03/22/17 23:00 Active IV ASDIRECTED Lactated Ringers [Ringers, Lactated] 1,000 ml Med 03/23/17 04:15 Active IV ASDIRECTED Multivitamins w-Iron/Ca/FA/Min [Thera M Plus] Med 03/23/17 09:00 Active 1 tab PO DAILY Omeprazole Med 03/22/17 12:49 Active 20 mg PO ACBREAKFAST PRN Ondansetron [Zofran] Med 03/22/17 12:33 Active 4 mg IVPUSH Q6H PRN Patient's Own Medication [Ptom] Med 03/23/17 09:00 Active 1 each PO DAILY Promethazine [Phenergan] Med 03/22/17 12:33 Active 25 mg IM Q6H PRN Simethicone Med 03/22/17 16:55 Active 80 mg PO Q6H PRN Thiamine [Vitamin B-1] Med 03/23/17 09:00 Active 100 mg PO DAILY fentaNYL [Sublimaze] Med 03/22/17 08:45 Active 50 mcg IVPUSH Q5M PRN Peripheral IV Discontinue [OM.PC] Routine Oth 03/22/17 12:33 Ordered Sequential Compression Device [OM.PC] Per Unit Routine Oth 03/22/17 12:33 Ordered Resuscitation Status Routine Resus Stat 03/22/17 12:33 Ordered Medication Orders Albuterol/Ipratropium (Duoneb 3.0-0.5 Mg/3 Ml) 3 ml NEB Q4HRRT [facility] Last Admin: 03/23/17 06:14 Dose: 3 ml Admin: 03/23/17 01:18 Dose: 3 ml Admin: 03/22/17 22:09 Dose: 3 ml Admin: 03/22/17 18:00 Dose: 3 ml Admin: 03/22/17 14:21 Dose: 3 ml Admin: 03/22/17 13:20 Dose: Fentanyl (Sublimaze) 50 mcg IVPUSH Q5M PRN PRN Reason: Pain (severe 7-10) Stop: 03/23/17 08:45 Last Admin: 03/22/17 11:00 Dose: 50 mcg Acetaminophen 1,000 mg/ Premix 100 mls @ 400 mls/hr IV Q6H [facility] Last Admin: 03/23/17 03:57 Dose: 400 mls/hr Infusion: 03/22/17 21:11 Dose: 400 mls/hr Admin: 03/22/17 20:56 Dose: 400 mls/hr Infusion: 03/22/17 15:48 Dose: 400 mls/hr Admin: 03/22/17 15:33 Dose: 400 mls/hr Lactated Ringer's (Ringers, Lactated) 1,000 mls @ 150 mls/hr IV ASDIRECTED [facility] Last Admin: 03/23/17 05:20 Dose: 150 mls/hr Infusion: 03/23/17 05:20 Dose: 150 mls/hr Admin: 03/22/17 23:45 Dose: 150 mls/hr Lactated Ringer's (Ringers, Lactated) 1,000 mls @ 999 mls/hr IV ASDIRECTED [facility] Last Admin: 03/23/17 04:21 Dose: 999 mls/hr Ibuprofen (Motrin) 600 mg PO Q6H PRN PRN Reason: Pain Last Admin: 03/23/17 04:28 Dose: 600 mg Admin: 03/22/17 19:48 Dose: 600 mg Multivitamins/Minerals (Thera M Plus) 1 tab PO DAILY [facility] Last Admin: 03/23/17 08:39 Dose: 1 tab Omeprazole (Omeprazole) 20 mg PO ACBREAKFAST PRN PRN Reason: Heartburn Ondansetron HCl (Zofran) 4 mg IVPUSH Q6H PRN PRN Reason: Nausea/Vomiting Last Admin: 03/22/17 15:44 Dose: 4 mg Vitamin B Complex 1 each PO DAILY [facility] Promethazine HCl (Phenergan) 25 mg IM Q6H PRN PRN Reason: Nausea/Vomiting Last Admin: 03/22/17 17:18 Dose: 25 mg Fluticasone/Salmeterol (Advair Diskus 100-50) 2 puff INH BID [facility] Last Admin: 03/23/17 00:07 Dose: 1 puff Simethicone (Simethicone) 80 mg PO Q6H PRN PRN Reason: Gas Thiamine HCl (Vitamin B-1) 100 mg PO DAILY [facility] Last Admin: 03/23/17 08:39 Dose: 100 mg - Plan Plan (Free Text/Narrative):: Patient was seen and examined by me. Pain is well controlled without narcotic pain medication. Will ambulate today, if tolerates then dismiss to home. Tolerating regular diet. Discharge instructions reviewed. She will use OTC ibuprofen, Tylenol and heating pad for pain. Continue CPAP at home and will follow up with PCP for any pulmonary concerns.
[2017-03-23 08:46] VITALS: BP 117/63
[2017-03-23] MEDS ORDERED: Thiamine 100 MG Tab PO SCH (09:00)
[2017-03-23] MEDS ORDERED: Multivitamins with Iron/Calcium/Folic Acid/Minerals Tab PO SCH (09:00)
--- NOTE | 2017-03-23 16:06 | PCM48HPAN ---
Post Anesthesia Note - EVALUATION WITHIN 48HRS OF ANESTHETIC Vital Signs in Normal Range: Yes Patient Participated in Evaluation: Yes Respiratory Function Stable: Yes Airway Patent: Yes Cardiovascular Function Stable: Yes Hydration Status Stable: Yes Pain Control Satisfactory: Yes Nausea and Vomiting Control Satisfactory: Yes Mental Status Recovered: Yes
== END 2017-03-23 10:22 | disposition home or self-care (01) ==
LOC: MW.SDS 06:24 → MW.ICU 12:33
PROVIDERS: ADMIT Obstetrics & Gynecology; ATTEND Obstetrics & Gynecology
DX: D25.1 Intramural leiomyoma of uterus (principal); N81.2 Incomplete uterovaginal prolapse; J45.998 Other asthma; G47.33 Obstructive sleep apnea (adult) (pediatric); Z88.1 Allergy status to other antibiotic agents; Z68.41 Body mass index [BMI] 40.0-44.9, adult; E66.01 Morbid (severe) obesity due to excess calories; Z98.890 Other specified postprocedural states; Z88.8 Allergy status to other drugs, medicaments and biological substances; Z79.899 Other long term (current) drug therapy; Z87.891 Personal history of nicotine dependence
CPT/HCPCS: 36415; 57260; 58552; 80048; 84703; 85025; 85027; 86850; 86900; 86901; 88307; 94640; 94660; A9270; G0378; J1100; J1170; J1580; J1940; J2250; J2405; J2550; J3010; J7030; J7120; 00944; J2704

== ENCOUNTER 2017-04-04 00:18 | Emergency (ER) | payer MEDICAID ==
[2017-04-04] MEDS ORDERED: diphenhydrAMINE 50 MG Cap PO ONE (00:55)
--- NOTE | 2017-04-04 01:01 | EDM.PDOC ---
ED HPI GENERAL MEDICAL PROBLEM - General Chief Complaint: Lower Extremity Injury/Pain Stated Complaint: RASH Time Seen by Provider: 04/04/17 00:45 Source of Information: Reports: Patient - History of Present Illness INITIAL COMMENTS - FREE TEXT/NARRATIVE: she started augmentin on Tuesday for lower abdominal pain . She states that she had a recent hysterectomy and the antibiotic was for a possible post operative infection. Her pain has now resolved. She has itching knees and a rash on her right buttock. no fever Pelvic Pain Score (Numeric/FACES): 3 - Related Data Allergies Allergy/AdvReac Type Severity Reaction Status Date / Time amoxicillin [From Augmentin] Allergy Rash Verified 04/04/17 00:59 clavulanic acid Allergy Rash Verified 04/04/17 00:59 [From Augmentin] codeine Allergy Vomiting Verified 04/04/17 00:36 Home Meds: Home Meds Albuterol [Proair HFA] 2 puff INH Q4HR PRN 03/01/14 [History] Fluticasone/Salmeterol [Advair Diskus 100-50] 2 puff INH BID 06/24/16 [History] Ibuprofen [Advil] 1 tab PO ASDIRECTED PRN 03/17/17 [History] Multivitamin [Multivitamins] 1 tab PO DAILY 03/17/17 [History] Omeprazole 20 mg PO ASDIRECTED PRN 03/17/17 [History] Thiamine [Vitamin B-1] 1 tab PO DAILY 03/17/17 [History] Vitamin B Complex 1 tab PO DAILY 03/17/17 [History] Acetaminophen [Tylenol Extra Strength] 1,500 mg PO Q6HR 04/04/17 [History] Past Medical History HEENT History: Reports: Allergic Rhinitis, Impaired Vision, Other (See Below) Other HEENT History: wears glasses Cardiovascular History: Reports: Other (See Below) Other Cardiovascular History: "high BP if I take to much sudafed" Respiratory History: Reports: Asthma, Sleep Apnea Other Respiratory History: uses CPAP Gastrointestinal History: Reports: GERD Genitourinary History: Reports: None 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: , 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 Other OB/BYN History: ETOP x3, spontaneous AB x3, 1 vaginal delivery Musculoskeletal History: Reports: None Neurological History: Reports: Vertigo Psychiatric History: Reports: Anxiety Endocrine/Metabolic History: Reports: Obesity/BMI 30+ Hematologic History: Reports: None Immunologic History: Reports: None Oncologic (Cancer) History: Reports: None Dermatologic History: Reports: None - Infectious Disease History Infectious Disease History: Reports: Chicken Pox, Pertussis (Whooping Cough) - Past Surgical History Head Surgeries/Procedures: Reports: None HEENT Surgical History: Reports: Naso-Sinus Surgery, Polypectomy, Tonsillectomy , Other (See Below) Other HEENT Surgeries/Procedures: Septal surgery Respiratory Surgical History: Reports: None Female Surgical History: Reports: D&C, Hysterectomy, Other (See Below) Other Female Surgeries/Procedures: laparotomy with right ovarian cystectomy in early 's, ETOP x3 Neurological Surgical History: Reports: None Social & Family History - Family History Family Medical History: Noncontributory - Tobacco Use Smoking Status *Q: Former Smoker Used Tobacco, but Quit: Yes Month Tobacco Last Used: 1984 Second Hand Smoke Exposure: No - Caffeine Use Caffeine Use: Reports: None Caffeine Use Comment: Quit coffee last week. - Alcohol Use Days Per Week of Alcohol Use: 0 - Recreational Drug Use Recreational Drug Use: No Review of Systems - Review of Systems Review Of Systems: See Below Constitutional: Denies: Chills, Fever Ears: Denies: Dizziness Respiratory: Denies: Shortness of Breath, Wheezing, Cough, Sputum Cardiovascular: Denies: Chest Pain GI/Abdominal: Denies: Abdominal Pain (no oral swelling ) ED EXAM, GENERAL - Physical Exam Exam: See Below Free Text/Narrative:: alert normal mentation oral cavity clear neck supple lungs CTA both knees anteriorly slightly red and puffy 4x4 cm raised urticarial lesion right buttock Course - Vital Signs Last Recorded V/S: Last Vital Signs Temp 96.9 F 04/04/17 00:33 Pulse 90 04/04/17 00:33 Resp 12 04/04/17 00:33 BP 142/88 H 04/04/17 00:33 Pulse Ox 96 04/04/17 00:33 - Orders/Labs/Meds Orders: Active Orders 24 hr Category Date Time Status diphenhydrAMINE [Benadryl] Med 04/04/17 00:55 Once 50 mg PO ONETIME ONE - Re-Assessments/Exams Free Text/Narrative Re-Assessment/Exam: 04/04/17 00:58 I advised regarding the possibility of augmentin allergy. Departure - Departure Time of Disposition: 00:59 Disposition: Home, Self-Care 01 Condition: Good Clinical Impression: Drug allergy - Discharge Information Referrals: Cory Morris MD [Primary Care Provider] - Additional Instructions: stop augmentin benadryl 25 to 50 mg every 6 hours as needed for itching follow up as needed your blood pressure was "borderline" . A follow up with your doctor is recommended. - My Orders Last 24 Hours: My Active Orders 04/04/17 00:55 diphenhydrAMINE [Benadryl] 50 mg PO ONETIME ONE - Assessment/Plan Last 24 Hours: My Active Orders 04/04/17 00:55 diphenhydrAMINE [Benadryl] 50 mg PO ONETIME ONE
[2017-04-04 01:24] VITALS: BP 137/84
== END 2017-04-04 01:26 | disposition home or self-care (01) ==
LOC: MW.ED 00:18
DX: L50.0 Allergic urticaria (principal); T36.0X5A Adverse effect of penicillins, initial encounter; J45.909 Unspecified asthma, uncomplicated; G47.30 Sleep apnea, unspecified; F41.9 Anxiety disorder, unspecified; Z90.710 Acquired absence of both cervix and uterus; Z87.891 Personal history of nicotine dependence; Z88.5 Allergy status to narcotic agent; Z88.1 Allergy status to other antibiotic agents
CPT/HCPCS: 99283; A9270

== ENCOUNTER 2017-04-05 11:46 | Emergency (ER) | payer MEDICAID ==
--- NOTE | 2017-04-05 11:54 | EDM.PDOC ---
ED HPI GENERAL MEDICAL PROBLEM - General Stated Complaint: ALLERGIC REACTION Time Seen by Provider: 04/05/17 11:48 - History of Present Illness INITIAL COMMENTS - FREE TEXT/NARRATIVE: HISTORY AND PHYSICAL: History of present illness: Patient is 51-year-old female presents with a concern of drug reaction she was seen 2 days prior and treated for presumptive medical allergy to Augmentin she has had periorbital edema and rash has gotten slightly worse she denies shortness of breath, or lip swelling difficulty swallowing or any other concern Review of systems: As per history of present illness and below otherwise all systems reviewed and negative. Past medical history: As per history of present illness and as reviewed below otherwise noncontributory. Surgical history: As per history of present illness and as reviewed below otherwise noncontributory. Social history: No reported history of drug or alcohol abuse. Family history: As per history of present illness and as reviewed below otherwise noncontributory. Physical exam: HEENT: Atraumatic, normocephalic, pupils reactive, negative for conjunctival pallor or scleral icterus, mucous membranes moist, throat clear, neck supple, nontender, trachea midline. Periorbital edema noted Lungs: Clear to auscultation, breath sounds equal bilaterally, chest nontender. Heart: S1S2, regular, negative for clicks, rubs, or JVD. Abdomen: Soft, nondistended, nontender. Negative for masses or hepatosplenomegaly. Negative for costovertebral tenderness. Pelvis: Stable nontender. Genitourinary: Deferred. Rectal: Deferred. Extremities: Atraumatic, negative for cords or calf pain. Neurovascular unremarkable. Neuro: Awake, alert, oriented. Cranial nerves II through XII unremarkable. Cerebellum unremarkable. Motor and sensory unremarkable throughout. Exam nonfocal. Skin: Patient has maculopapular rash with somewhat diffuse and sparse Diagnostics: None Therapeutics: None Impression: #1 drug reaction Definitive disposition and diagnosis as appropriate pending reevaluation and review of above. - Related Data Allergies Allergy/AdvReac Type Severity Reaction Status Date / Time amoxicillin [From Augmentin] Allergy Rash Verified 04/04/17 00:59 clavulanic acid Allergy Rash Verified 04/04/17 00:59 [From Augmentin] codeine Allergy Vomiting Verified 04/04/17 00:36 Home Meds: Home Meds Albuterol [Proair HFA] 2 puff INH Q4HR PRN 03/01/14 [History] Fluticasone/Salmeterol [Advair Diskus 100-50] 2 puff INH BID 06/24/16 [History] Ibuprofen [Advil] 1 tab PO ASDIRECTED PRN 03/17/17 [History] Multivitamin [Multivitamins] 1 tab PO DAILY 03/17/17 [History] Omeprazole 20 mg PO ASDIRECTED PRN 03/17/17 [History] Thiamine [Vitamin B-1] 1 tab PO DAILY 03/17/17 [History] Vitamin B Complex 1 tab PO DAILY 03/17/17 [History] Acetaminophen [Tylenol Extra Strength] 1,500 mg PO Q6HR 04/04/17 [History] Past Medical History HEENT History: Reports: Allergic Rhinitis, Impaired Vision, Other (See Below) Other HEENT History: wears glasses Cardiovascular History: Reports: Other (See Below) Other Cardiovascular History: "high BP if I take to much sudafed" Respiratory History: Reports: Asthma, Sleep Apnea Other Respiratory History: uses CPAP Gastrointestinal History: Reports: GERD Genitourinary History: Reports: None 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: , 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 Other OB/BYN History: ETOP x3, spontaneous AB x3, 1 vaginal delivery Musculoskeletal History: Reports: None Neurological History: Reports: Vertigo Psychiatric History: Reports: Anxiety Endocrine/Metabolic History: Reports: Obesity/BMI 30+ Hematologic History: Reports: None Immunologic History: Reports: None Oncologic (Cancer) History: Reports: None Dermatologic History: Reports: None - Infectious Disease History Infectious Disease History: Reports: Chicken Pox, Pertussis (Whooping Cough) - Past Surgical History Head Surgeries/Procedures: Reports: None HEENT Surgical History: Reports: Naso-Sinus Surgery, Polypectomy, Tonsillectomy , Other (See Below) Other HEENT Surgeries/Procedures: Septal surgery Respiratory Surgical History: Reports: None Female Surgical History: Reports: D&C, Hysterectomy, Other (See Below) Other Female Surgeries/Procedures: laparotomy with right ovarian cystectomy in early 's, ETOP x3 Neurological Surgical History: Reports: None Social & Family History - Family History Family Medical History: Noncontributory - Tobacco Use Smoking Status *Q: Former Smoker Used Tobacco, but Quit: Yes Month Tobacco Last Used: 1984 Second Hand Smoke Exposure: No - Caffeine Use Caffeine Use: Reports: None Caffeine Use Comment: Quit coffee last week. - Alcohol Use Days Per Week of Alcohol Use: 0 - Recreational Drug Use Recreational Drug Use: No ED ROS GENERAL - Review of Systems Review Of Systems: ROS reveals no pertinent complaints other than HPI. ED EXAM, GENERAL - Physical Exam Exam: See Below (Dictation) Departure - Departure Time of Disposition: 11:53 Disposition: Home, Self-Care 01 Condition: Good Clinical Impression: Drug reaction - Discharge Information Additional Instructions: The following information is given to patients seen in the emergency department who are being discharged to home. This information is to outline your options for follow-up care. We provide all patients seen in our emergency department with a follow-up referral. The need for follow-up, as well as the timing and circumstances, are variable depending upon the specifics of your emergency department visit. If you don't have a primary care physician on staff, we will provide you with a referral. We always advise you to contact your personal physician following an emergency department visit to inform them of the circumstance of the visit and for follow-up with them and/or the need for any referrals to a consulting specialist. The emergency department will also refer you to a specialist when appropriate. This referral assures that you have the opportunity for followup care with a specialist. All of these measure are taken in an effort to provide you with optimal care, which includes your followup. Under all circumstances we always encourage you to contact your private physician who remains a resource for coordinating your care. When calling for followup care, please make the office aware that this follow-up is from your recent emergency room visit. If for any reason you are refused follow-up, please contact the [facility] emergency department at and asked to speak to the emergency department charge nurs Medrol as prescribed continue Benadryl follow-up private medical doctor on today 's return as needed as discussed[]
[2017-04-05 12:24] VITALS: BP 131/75
== END 2017-04-05 12:15 | disposition home or self-care (01) ==
LOC: MW.ED 11:46
DX: L27.0 Generalized skin eruption due to drugs and medicaments taken internally (principal); T36.0X5A Adverse effect of penicillins, initial encounter; J45.909 Unspecified asthma, uncomplicated; F41.9 Anxiety disorder, unspecified; Z87.891 Personal history of nicotine dependence; Z88.1 Allergy status to other antibiotic agents; Z88.5 Allergy status to narcotic agent
CPT/HCPCS: 99282; 99283

== ENCOUNTER 2018-08-16 02:05 | Emergency (ER) | payer SELFPAY ==
[2018-08-16 02:21] VITALS: BP 133/78
[2018-08-16] MEDS ORDERED: Benzocaine 20% Topical Spray UD MUCMEM ONE (02:38)
[2018-08-16] MEDS ORDERED: Lidocaine 2% Viscous Solution 15 ML Cup PO ONE (02:38)
--- NOTE | 2018-08-16 02:43 | EDM.PDOC ---
ED HPI GENERAL MEDICAL PROBLEM - General Chief Complaint: ENT Problem Stated Complaint: LEFT EAR PAIN Time Seen by Provider: 08/16/18 02:19 - History of Present Illness INITIAL COMMENTS - FREE TEXT/NARRATIVE: HISTORY AND PHYSICAL: History of present illness: The patient is a 52-year-old female who presents with complaints of pressure and pain to her left ear that started on Tuesday, 3 days ago. She did not notice any drainage from the area and she has not had fevers chills runny nose or sore throat. She says she feels a pressure in the inner ear and also feels like her hearing is altered and she also feels pressure and discomfort in the area of her left maxilla. Patient says she has only one molar left on the left upper side and that has a filling in she wasn't sure if the tooth was causing the issue. Patient says she usually chews her food on that side. The patient denies any oropharyngeal pain and has not had a runny nose or sinus congestion. She has no headache but she has felt nauseated. She says that she has had bad vertigo in the past and she is scared that whatever is going on is going to trigger that but she has not had vertigo in the last 3 days. Patient tried ear oil for help with the pain and it did not improve anything. Review of systems: As per history of present illness and below otherwise all systems reviewed and negative. Past medical history: As per history of present illness and as reviewed below otherwise noncontributory. Surgical history: As per history of present illness and as reviewed below otherwise noncontributory. Social history: No reported history of drug or alcohol abuse. Family history: As per history of present illness and as reviewed below otherwise noncontributory. Physical exam: General: Well-developed well-nourished female who is nontoxic and vital signs are noted by me. She speaks clearly without nasal quality to voice her head easily without distress. HEENT: Atraumatic, normocephalic, pupils reactive, negative for conjunctival pallor or scleral icterus, mucous membranes moist, throat clear, neck supple, nontender, trachea midline. There is no cervical adenopathy or nuchal rigidity and no discrete sinus tenderness. The nasal turbinates are not particularly boggy nor is there much drainage. Bilateral TMs have a normal light reflex and there is no evidence of any erythema or bulging in the external canals are normal without any debris or cerumen. There is no mastoid redness or tenderness appreciated. There is no cervical adenopathy or nuchal rigidity. At the teeth there is only one remaining molar in the left upper mouth and that tooth has an old filling in it and has some chronic discoloration but no discrete carry can be appreciated on visual inspection. There is some induration of the gum in the surround but no fluctuance and there is minimal tenderness in this region Lungs: Clear to auscultation, breath sounds equal bilaterally, chest nontender. Heart: S1S2, regular rate and rhythm no overt murmurs. Abdomen: Soft, nondistended, nontender. NABS Pelvis: Deferred Genitourinary: Deferred. Rectal: Deferred. Extremities: Atraumatic, full range of motion without defects or deficits. Neurovascular unremarkable. Neuro: Awake, alert, oriented. Cranial nerves II through XII unremarkable. Cerebellum unremarkable. Motor and sensory unremarkable throughout. Exam nonfocal. Diagnostics: [] Therapeutics: Dental balls I told the patient that it is unclear what is completely causing her discomfort at this time but the left upper molar area does look suspicious and she should follow-up with a dentist. We will give her dental balls I will give her antibiotics. I will also give her primary care follow-up as this problem may be more involved than what we are seeing and may need more workup and she is aware of this. Impression: Left otalgia, rule out dental pain Definitive disposition and diagnosis as appropriate pending reevaluation and review of above. - Related Data Allergies Allergy/AdvReac Type Severity Reaction Status Date / Time amoxicillin [From Augmentin] Allergy Rash Verified 04/05/17 12:01 clavulanic acid Allergy Rash Verified 04/05/17 12:01 [From Augmentin] codeine Allergy Vomiting Verified 04/05/17 12:01 Home Meds: Home Meds Albuterol [Proair HFA] 2 puff INH Q4HR PRN 03/01/14 [History] Fluticasone/Salmeterol [Advair Diskus 100-50] 2 puff INH BID 06/24/16 [History] Past Medical History HEENT History: Reports: Allergic Rhinitis, Impaired Vision, Other (See Below) Other HEENT History: wears glasses Cardiovascular History: Reports: Other (See Below) Other Cardiovascular History: "high BP if I take to much sudafed" Respiratory History: Reports: Asthma, Sleep Apnea Other Respiratory History: uses CPAP Gastrointestinal History: Reports: GERD Genitourinary History: Reports: None 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: , 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: ETOP x3, spontaneous AB x3, 1 vaginal delivery Musculoskeletal History: Reports: None Neurological History: Reports: Vertigo Psychiatric History: Reports: Anxiety Endocrine/Metabolic History: Reports: Obesity/BMI 30+ Hematologic History: Reports: None Immunologic History: Reports: None Oncologic (Cancer) History: Reports: None Dermatologic History: Reports: None - Infectious Disease History Infectious Disease History: Reports: Chicken Pox - Past Surgical History Head Surgeries/Procedures: Reports: None HEENT Surgical History: Reports: Naso-Sinus Surgery, Polypectomy, Tonsillectomy , Other (See Below) Other HEENT Surgeries/Procedures: Septal surgery Respiratory Surgical History: Reports: None Female Surgical History: Reports: D&C, Hysterectomy, Other (See Below) Other Female Surgeries/Procedures: laparotomy with right ovarian cystectomy in early 80's, ETOP x3 Neurological Surgical History: Reports: None Social & Family History - Family History Family Medical History: Noncontributory - Tobacco Use Smoking Status *Q: Never Smoker - Caffeine Use Caffeine Use: Reports: Coffee Caffeine Use Comment: Quit coffee last week. - Recreational Drug Use Recreational Drug Use: No ED ROS GENERAL - Review of Systems Review Of Systems: ROS reveals no pertinent complaints other than HPI. ED EXAM, GENERAL - Physical Exam Exam: See Below (See dictation) Course - Vital Signs Last Recorded V/S: Last Vital Signs Temp 35.8 C 08/16/18 02:18 Pulse 87 08/16/18 02:18 Resp 18 08/16/18 02:18 BP 133/78 08/16/18 02:18 Pulse Ox 95 08/16/18 02:18 - Orders/Labs/Meds Meds: Medications Discontinued Medications Generic Name Dose Route Start Last Admin Trade Name Freq PRN Reason Stop Dose Admin Benzocaine 2 each 08/16/18 02:38 Hurricaine One 20% MUCMEM 08/16/18 02:39 ONETIME ONE Lidocaine HCl 15 ml 08/16/18 02:38 Xylocaine 2% Viscous PO 03/13/19 02:39 ONETIME ONE Departure - Departure Time of Disposition: 02:43 Disposition: Home, Self-Care 01 Condition: Good Clinical Impression: Otalgia of left ear, Dental disease - Discharge Information Referrals: PCP,None [Primary Care Provider] - Forms: ED Department Discharge Additional Instructions: The following information is given to patients seen in the emergency department who are being discharged to home. This information is to outline your options for follow-up care. We provide all patients seen in our emergency department with a follow-up referral. The need for follow-up, as well as the timing and circumstances, are variable depending upon the specifics of your emergency department visit. If you don't have a primary care physician on staff, we will provide you with a referral. We always advise you to contact your personal physician following an emergency department visit to inform them of the circumstance of the visit and for follow-up with them and/or the need for any referrals to a consulting specialist. The emergency department will also refer you to a specialist when appropriate. This referral assures that you have the opportunity for followup care with a specialist. All of these measure are taken in an effort to provide you with optimal care, which includes your followup. Under all circumstances we always encourage you to contact your private physician who remains a resource for coordinating your care. When calling for followup care, please make the office aware that this follow-up is from your recent emergency room visit. If for any reason you are refused follow-up, please contact the [facility] emergency department at and ask to speak to the emergency department charge nurse. [facility] Primary care- Internal Medicine and Family [address] [id number] Please use dental balls you have been given in the ED in the area of the discomfort at the tooth as this may help you with the pain and determine if this is the primary cause. Also use [id number] Tylenol or ibuprofen for pain and refrain from putting any [id number] products in your ears. Please call and schedule a follow-up appointment with one of our providers in the clinic or with your provider for further care and evaluation as this may need more medical evaluation. Also contact one of our local dentist for evaluation of the tooth in question as this may be the cause of ear discomfort as well. Return to ER as needed and as discussed. You have been given medications from [facility], Keflex.
== END 2018-08-16 03:00 | disposition home or self-care (01) ==
LOC: MW.ED 02:05
DX: H92.02 Otalgia, left ear (principal); K08.89 Other specified disorders of teeth and supporting structures; Z88.1 Allergy status to other antibiotic agents; Z88.8 Allergy status to other drugs, medicaments and biological substances; Z88.5 Allergy status to narcotic agent; Z79.899 Other long term (current) drug therapy
CPT/HCPCS: 99282; A9270

== ENCOUNTER 2020-05-28 08:58 | Emergency (ER) | payer OTHER ==
--- NOTE | 2020-05-28 09:28 | EDM.PDOC ---
ED HPI GENERAL MEDICAL PROBLEM - General Chief Complaint: Respiratory Problem Stated Complaint: COVID SYMPTOMS Time Seen by Provider: 05/28/20 09:29 Source of Information: Reports: Patient History Limitations: Reports: No Limitations - History of Present Illness INITIAL COMMENTS - FREE TEXT/NARRATIVE: Is a 54-year-old female who presents today for shortness of breath. Patient was diagnosed with Covid on Tuesday but symptoms for her started last . Patient states that today she became per herself very anxious and panic because the primary care physician told her day 7 and 8 will be the worse for her symptoms. Patient currently states she feels fine she has no chest pain abdominal pain or nausea vomiting. Patient states she has been using albuterol at home at times and she does feel short of breath and currently still sleeps with her CPAP machine which is been assisting her while sleeping. - Related Data Allergies Allergy/AdvReac Type Severity Reaction Status Date / Time amoxicillin [From Augmentin] Allergy Rash Verified 04/05/17 12:01 clavulanic acid Allergy Rash Verified 04/05/17 12:01 [From Augmentin] codeine Allergy Vomiting Verified 04/05/17 12:01 Penicillins Allergy Hives Verified 05/28/20 09:09 all narcotics Allergy Difficulty Uncoded 05/28/20 09:09 Breathing Home Meds: Home Meds Albuterol [Proair HFA] 2 puff INH Q4HR PRN 03/01/14 [History] Albuterol [Proventil Neb Soln] 3 ml NEB Q4HRRT PRN 05/28/20 [History] Budesonide/Formoterol Fumarate [Symbicort 160-4.5 Mcg Inhaler] 2 puff INH BID 05/28/20 [History] Past Medical History HEENT History: Reports: Allergic Rhinitis, Impaired Vision, Other (See Below) Other HEENT History: wears glasses Cardiovascular History: Reports: Other (See Below) Other Cardiovascular History: "high BP if I take to much sudafed" Respiratory History: Reports: Asthma, Sleep Apnea Other Respiratory History: uses CPAP Gastrointestinal History: Reports: GERD Genitourinary History: Reports: None FURNITURE DUSTER History: Reports: , Spontaneous Other FURNITURE DUSTER History: ETOP x3, spontaneous AB x3, 1 vaginal delivery Musculoskeletal History: Reports: None Neurological History: Reports: Vertigo Psychiatric History: Reports: Anxiety Endocrine/Metabolic History: Reports: Obesity/BMI 30+ Hematologic History: Reports: None Immunologic History: Reports: None Oncologic (Cancer) History: Reports: None Dermatologic History: Reports: None - Infectious Disease History Infectious Disease History: Reports: Chicken Pox - Past Surgical History Head Surgeries/Procedures: Reports: None HEENT Surgical History: Reports: Naso-Sinus Surgery, Polypectomy, Tonsillectomy, Other (See Below) Other HEENT Surgeries/Procedures: Septal surgery Respiratory Surgical History: Reports: None GI Surgical History: Reports: None Female Surgical History: Reports: D&C, Hysterectomy, Other (See Below) Other Female Surgeries/Procedures: laparotomy with right ovarian cystectomy in early 80's, ETOP x3 Endocrine Surgical History: Reports: None Neurological Surgical History: Reports: None Social & Family History - Family History Family Medical History: No Pertinent Family History - Tobacco Use Tobacco Use Status *Q: Never Tobacco User Second Hand Smoke Exposure: No - Caffeine Use Caffeine Use: Reports: Coffee Caffeine Use Comment: Quit coffee last week. - Recreational Drug Use Recreational Drug Use: No ED ROS GENERAL - Review of Systems Review Of Systems: See Below Constitutional: Reports: No Symptoms HEENT: Reports: No Symptoms Respiratory: Reports: Shortness of Breath Cardiovascular: Reports: No Symptoms Endocrine: Reports: No Symptoms GI/Abdominal: Reports: No Symptoms : Reports: No Symptoms Musculoskeletal: Reports: No Symptoms Skin: Reports: No Symptoms Neurological: Reports: No Symptoms Psychiatric: Reports: No Symptoms Hematologic/Lymphatic: Reports: No Symptoms Immunologic: Reports: No Symptoms ED EXAM, GENERAL - Physical Exam Exam: See Below Exam Limited By: No Limitations General Appearance: Alert, WD/WN, No Apparent Distress Eye Exam: Bilateral Eye: EOMI, PERRL Head: Atraumatic Neck: Normal Inspection Respiratory/Chest: No Respiratory Distress, Lungs Clear, Normal Breath Sounds Cardiovascular: Normal Peripheral Pulses, Regular Rate, Rhythm, No Edema GI/Abdominal: Normal Bowel Sounds, Soft, Non-Tender Neurological: Alert, Oriented, Normal Cognition, Normal Gait Skin Exam: Warm #1 Interpretation EKG Date: 05/28/20 Time: 09:20 Rhythm: NSR Rate (Beats/Min): 71 [place]: Normal ST-T: Normal Course - Vital Signs Last Recorded V/S: Last Vital Signs Temp 96.2 F L 05/28/20 08:58 Pulse 80 05/28/20 08:58 Resp 20 05/28/20 08:58 BP 150/66 H 05/28/20 08:58 Pulse Ox 99 05/28/20 08:58 - Orders/Labs/Meds Labs: Laboratory Tests 05/28/20 05/28/20 Range/Units 09:16 09:16 WBC 8.29 (4.0-11.0) K/uL RBC 4.37 (4.30-5.90) M/uL Hgb 13.9 (12.0-16.0) g/dL Hct 42.7 (36.0-46.0) % MCV 97.7 (80.0-98.0) fL MCH 31.8 (27.0-32.0) pg MCHC 32.6 (31.0-37.0) g/dL RDW Std Deviation 47.9 (28.0-62.0) fl RDW Coeff of Gwyn 13 (11.0-15.0) % Plt Count 212 (150-400) K/uL MPV 11.00 (7.40-12.00) fL Neut % (Auto) 72.8 (48.0-80.0) % Lymph % (Auto) 18.8 (16.0-40.0) % [place] % (Auto) 6.5 (0.0-15.0) % Eos % (Auto) 1.8 (0.0-7.0) % Baso % (Auto) 0.1 (0.0-1.5) % Neut # (Auto) 6.0 H (1.4-5.7) K/uL Lymph # (Auto) 1.6 (0.6-2.4) K/uL [place] # (Auto) 0.5 (0.0-0.8) K/uL Eos # (Auto) 0.2 (0.0-0.7) K/uL Baso # (Auto) 0.0 (0.0-0.1) K/uL Nucleated RBC % 0.0 /100WBC Nucleated RBCs # 0 K/uL Sodium 136 (136-145) mmol/L Potassium 3.8 (3.5-5.1) mmol/L Chloride 100 (98-107) mmol/L Carbon Dioxide 24.6 (21.0-32.0) mmol/L BUN 16 (7.0-18.0) mg/dL Creatinine 1.0 (0.6-1.0) mg/dL Est Cr Clr Drug Dosing 52.58 mL/min Estimated GFR (MDRD) 57.6 ml/min Glucose 127 H (74-106) mg/dL Calcium 8.7 (8.5-10.1) mg/dL Total Bilirubin 1.0 (0.2-1.0) mg/dL AST 34 (15-37) IU/L ALT 53 (14-63) IU/L Alkaline Phosphatase 55 (46-116) U/L Total Protein 7.0 (6.4-8.2) g/dL Albumin 3.5 (3.4-5.0) g/dL Globulin 3.5 (2.6-4.0) g/dL Albumin/Globulin Ratio 1.0 (0.9-1.6) - Re-Assessments/Exams Free Text/Narrative Re-Assessment/Exam: 05/28/20 10:21 Level remains at greater than 98% on room air. Patient x-ray did not show any Covid pneumonia. Patient also received a call that she has been approved for the infusion was started treatment this week. Patient stable for discharge home. Departure - Departure Time of Disposition: 10:22 Disposition: Home, Self-Care 01 Condition: Good Clinical Impression: Hypoxia - Discharge Information *PRESCRIPTION DRUG MONITORING PROGRAM REVIEWED*: Not Applicable *COPY OF PRESCRIPTION DRUG MONITORING REPORT IN PATIENT SERGIO: Not Applicable Instructions: Shortness of Breath, Adult, [id number] Forms: ED Department Discharge Additional Instructions: The following information is given to patients seen in the emergency department who are being discharged to home. This information is to outline your options for follow-up care. We provide all patients seen in our emergency department with a follow-up referral. The need for follow-up, as well as the timing and circumstances, are variable depending upon the specifics of your emergency department visit. If you don't have a primary care physician on staff, we will provide you with a referral. We always advise you to contact your personal physician following an emergency department visit to inform them of the circumstance of the visit and for follow-up with them and/or the need for any referrals to a consulting specialist. The emergency department will also refer you to a specialist when appropriate. This referral assures that you have the opportunity for follow-up care with a specialist. All of these measure are taken in an effort to provide you with optimal care, which includes your follow-up. Under all circumstances we always encourage you to contact your private physician who remains a resource for coordinating your care. When calling for follow-up care, please make the office aware that this follow-up is from your recent emergency room visit. If for any reason you are refused follow-up, please contact the [facility] Emergency Department at and asked to speak to the emergency department charge nurse. Please follow up with your primary care physician. If you do not have a primary care physician, see below: [facility] [address] [place] [address] [id number] [facility] [address] [place] [id number] Follow-up with your primary care physician if you have any difficulty breathing please return to ED. Sepsis Event Note (ED) - Evaluation Sepsis Screening Result: No Definite Risk - Focused Exam Vital Signs: Vital Signs Temp Pulse Resp BP Pulse Ox 05/28/20 08:58 96.2 F L 80 20 150/66 H 99 - Assessment/Plan Assessment:: Patient is a 54-year-old female who presents today for shortness of breath. Patient recently tested positive for Covid. Patient currently satting 98% on room air vital signs are stable. Patient looks well. Patient is already having possible infusion set up by her primary physician. Pain labs and x-ray and reassess.
[2020-05-28 09:47] LABS: CARBON DIOXIDE,CO2 24.6 mmol/L (21.0-32.0); POTASSIUM,K 3.8 mmol/L (3.5-5.1)
--- NOTE | 2020-05-28 10:13 | CR ---
INDICATION: COVID positive. Shortness of breath. TECHNIQUE: Chest 1 views COMPARISON: September 24, 2016. FINDINGS: Cardiovascular and mediastinum: Heart size and vasculature are normal in caliber and appearance. Lungs and pleural spaces: Lungs are clear. No sign of infiltrate or mass. No sign of pleural effusion. No pneumothorax. Bones and soft tissues: No significant findings. IMPRESSION: No acute findings and no significant changes from the prior exam. No sign of pneumonia. Dictated by Barrington Hsieh MD @ May 28 2020 10:11AM Signed by Dr. Barrington Hsieh @ May 28 2020 10:12AM
[2020-05-28 10:25] VITALS: BP 137/65; PULSE 68
== END 2020-05-28 10:41 | disposition home or self-care (01) ==
LOC: MW.ED 08:58
DX: U07.1 COVID-19 (principal); R09.02 Hypoxemia; J45.909 Unspecified asthma, uncomplicated; E66.9 Obesity, unspecified; Z68.41 Body mass index [BMI] 40.0-44.9, adult; Z88.0 Allergy status to penicillin; Z88.1 Allergy status to other antibiotic agents; Z88.5 Allergy status to narcotic agent; Z79.899 Other long term (current) drug therapy
CPT/HCPCS: 36415; 71045; 71045-26; 80053; 85025; 93005; 99285-25